=== PATIENT | female | born 1980 | race African-American/Black ===

== ENCOUNTER 2022-07-05 09:13 | Emergency (ER) | payer MEDICAID, SELFPAY ==
[2022-07-05] VITALS (7 sets, daily range): BP systolic 112–145; BP diastolic 65–90; PULSE 66–147; RESP 14–27; TEMP 35.7; O2SAT 95–100; BMI 48.0
--- NOTE | 2022-07-05 09:18 | NURSING ---
NO OLD EKGS
--- NOTE | 2022-07-05 09:59 | CT_ITS ---
STUDY: CTA CHEST REASON FOR EXAM: Female, 41 years old. chest and abdomen pain RADIATION DOSAGE (If Supplied By Facility): CTDIvol = ( 19.17 ) mGy, DLP = ( 3553.16 ) mGycm TECHNIQUE: The examination was performed with the intravenous administration of IV 100mL Isovue-370. Post-processing of the angiographic images was performed, with multiplanar reformation and 3D reconstruction. Individualized dose optimization techniques were used for this CT. COMPARISON: None. FINDINGS: Normal enhancement of the main pulmonary artery and right and left pulmonary arteries. Normal enhancement of the bilateral peripheral pulmonary arteries. There is no demonstrated pulmonary embolism. Normal thoracic aorta and visualized great vessels. There is no demonstrated aortic dissection. Normal heart and pericardium. Normal mediastinum. Normal hilar regions. Normal visualized trachea and bronchi. The lungs are well expanded. Mild bibasilar dependent atelectasis. Normal pleura. Normal chest wall structures. Mild degenerative changes lower thoracic spine. Fatty infiltration imaged portion of liver. CT/CTA Chest W/WO Contrast IMPRESSION: Normal CTA chest examination, without a demonstrated pulmonary embolism or arterial dissection. Mild bibasilar dependent atelectasis. Mild degenerative changes lower thoracic spine. Fatty infiltration imaged portion of the liver. Electronically Signed: Adarsh Rush MD, ALFONZO at 11:46 EDT ,
--- NOTE | 2022-07-05 10:00 | CT_ITS ---
STUDY: CT ABDOMEN AND PELVIS WITH CONTRAST REASON FOR EXAM: Female, 41 years old. abdominal pain RADIATION DOSAGE (If Supplied By Facility): CTDIvol = ( 19.17 ) mGy, DLP = ( 3553.16 ) mGycm TECHNIQUE: Transaxial images were obtained from the dome of the diaphragm to the symphysis pubis without oral contrast. IV 100mL Isovue-370 was administered. Sagittal and coronal images were reconstructed. Individualized dose optimization techniques were used for this CT. COMPARISON: None. FINDINGS: The visualized lung bases are unremarkable. The visualized portions of the heart are within normal limits. Mild fatty infiltration. Normal gallbladder and extrahepatic biliary system. Normal spleen. Normal variant accessory spleen. Normal pancreas. Normal bilateral adrenal glands. Normal right kidney. Normal left kidney. Normal visualized stomach. Normal small intestine. Moderate stool in the ascending colon and rectum consistent with fecal stasis. Remainder of colon normal. The appendix is visualized and appears normal. Normal abdominal aorta. Normal inferior vena cava. Normal retroperitoneum. Normal urinary bladder. Normal abdominal wall. Normal osseous structures. CT/Abdomen/Pelvis W IV Cont ONLY IMPRESSION: Normal variant accessory spleen. Fecal stasis ascending colon and rectum. Fatty liver. Electronically Signed: Adarsh Rush MD, ALFONZO at 11:39 EDT ,
--- NOTE | 2022-07-05 10:00 | EKG12_ITS ---
Test Reason : CP Blood Pressure : / mmHG Vent. Rate : 146 BPM Atrial Rate : 146 BPM P-R Int : 160 ms QRS Dur : 084 ms QT Int : 314 ms P-R-T Axes : 037 012 118 degrees QTc Int : 489 ms Sinus tachycardia Minimal voltage criteria for LVH, may be normal variant ( R in aVL ) ST & T wave abnormality, consider inferolateral ischemia Abnormal ECG Confirmed by HÉCTOR ARAUJO, LEYLA ([id number]), medical transcription editor SUJEY KERANS ([id number]) on 07/07/2022 2:06:35 P M Referred By: BRADLEY Confirmed By:CARMEL ANAYA MD
--- NOTE | 2022-07-05 10:01 | EDS_ITS ---
HPI History of Present Illness Chief Complaint: Chest Pain Detail of Chief Complaint: Chest and abdomen pain that started at approximately midnight Informant: patient Narrative Narrative: Patient presents the emergency department with complaint of chest and abdomen pain. Patient was having preadmission testing as she is scheduled to have a hysteroscopy. Patient was noted to be tachycardic and complaining of chest pain and abdominal pain and referred to the emergency department. Patient states symptoms came on suddenly last evening. Patient describes a pressure in her chest but sharp stabbing pains in her abdomen. Patient has history of ovarian torsion and states pain reminds her of that. Pain however is kind of diffuse in the abdomen. She has had nausea but no vomiting. She denies fever or recent illness otherwise. She does complain of urinary frequency. She has no heart history. She does have history of diabetes and hypertension. Prior similar symptoms: No PFSH PFS Medical History (Updated 07/05/22 @ 14:[address] Lamont Mancuso, DO) delivery delivered Ovarian torsion Home Medications amlodipine 10 mg tablet 25 mg PO DAILY 07/05/22 [History Last Taken Unknown] cyclobenzaprine 10 mg tablet 10 mg PO TID 07/05/22 [History Last Taken Unknown] hydrocodone-acetaminophen 5-325mg 5mg-325mg 1 tab PO Q4H PRN PRN Pain 2 days #10 TABLETS 07/05/22 [Rx Last Taken Unknown] hydroxyzine HCl 25 mg tablet 25 mg PO TID PRN Anxiety 07/05/22 [History Last Taken Unknown] insulin glargine 100 unit/mL subcutaneous cartridge 0 unit subcut TID 07/05/22 [History Last Taken Unknown] insulin lispro 100 unit/mL subcutaneous pen 0 unit subcut TID 07/05/22 [History Last Taken Unknown] liraglutide 0.6 mg/0.1 mL (18 mg/3 mL) subcutaneous pen injector (Victoza 2-Delonte) 1.2 mg subcut DAILY 07/05/22 [History Last Taken Unknown] pregabalin 25 mg capsule (Lyrica) 25 mg PO TID 07/05/22 [History Last Taken Unknown] sulfamethoxazole 800 mg-trimethoprim 160 mg tablet 1 tab PO BID #14 TABLETS 07/05/22 [Rx Last Taken Unknown] venlafaxine 75 mg tablet 187.5 mg PO DAILY 07/05/22 [History Last Taken Unknown] Allergy/AdvReac Type Severity Reaction Status Date / Time amoxicillin Allergy Hives Verified 07/05/22 09:15 ciprofloxacin [From Cipro] Allergy Hives Verified 07/05/22 09:15 Social History Smoking Status: Never smoker ROS ROS ED Review of Systems ROS Unobtainable: other Constitutional Constitutional ED: Reports lethargy; Denies chills, fever(s), sweats or weight loss Eyes Eyes: Denies blurry vision, change in vision or diplopia ENT ENT ED: Denies rhinorrhea or sore throat Cardiovascular Cardiovascular: Reports chest pain and racing heartbeat; Denies orthopnea Respiratory/Chest Respiratory/Chest: Denies cough, dyspnea, dyspnea on exertion, orthopnea or sputum Gastrointestinal Gastrointestinal: Reports abdominal pain and nausea; Denies diarrhea or vomiting Genitourinary Genitourinary ED: Reports other Details: Patient with urinary frequency ; Denies dysuria, hematuria or urinary frequency Musculoskeletal Musculoskeletal: Denies arthralgias, back pain, myalgias or neck pain Integumentary Denies abscess, Abrasions or rash Neurologic Neurologic: Denies headache(s) or weakness Psychiatric Psychiatric: Denies anxiety, depression or suicidal thoughts Endocrine Endocrinology: Denies polydipsia, polyphagia or polyuria Hematologic/Lymphatic Hematologic/Lymphatic: Denies easy bleeding, easy bruising or lymphadenopathy Allergic/Immunologic Allergic/Immunologic ED: Denies mouth swelling, tongue swelling or urticaria EXAM Physical Exam Const Vital Signs: 07/05/22 09:15 07/05/22 09:24 07/05/22 09:24 Temperature 96.2 F L Temperature Source Temporal Pulse Rate 141 H 147 H Respiratory Rate 20 H 27 H Respiratory Effort Short of Breath Blood Pressure 115/90 H Blood Pressure Mean 98 Pulse Ox 98 98 Oxygen Delivery Method Room Air Room Air 07/05/22 10:25 07/05/22 11:00 07/05/22 12:00 Temperature Temperature Source Pulse Rate 127 H 66 66 Respiratory Rate 14 18 18 Respiratory Effort Blood Pressure 124/74 H 145/65 H 142/78 H Blood Pressure Mean 90 91 99 Pulse Ox 98 98 100 Oxygen Delivery Method Room Air Room Air Room Air 07/05/22 13:00 07/05/22 13:23 Temperature Temperature Source Pulse Rate 78 105 H Respiratory Rate 14 16 Respiratory Effort Blood Pressure 138/78 H 112/71 Blood Pressure Mean 98 84 Pulse Ox 98 95 Oxygen Delivery Method Room Air Room Air Positive well nourished and well developed General Appearance ED: well developed and NAD HEENT Reports TM's clear and moist mucous membranes normocephalic and atraumatic; Negative for trauma or tenderness Tympanic Membrane ED: Yes TM's clear Eyes PERRL and EOMs intact bilaterally General Eye ED: Negative for pale conjunctiva or scleral icterus Neck no lymphadenopathy, supple and no JVD General: Negative for tenderness Chest Wall inspection of chest normal and palpation of chest normal Chest: Negative for tenderness Resp normal respiratory effort and clear to auscultation bilaterally Effort and Inspection: Negative for respiratory distress or pain with movement Auscultation: Negative for rhonchi, wheezes or diminished lung sounds Cardio regular rhythm, S1 normal heart sound, S2 normal heart sound and no murmurs Rate: tachycardic Peripheral Pulses: pulses 2+ throughout GI normal to inspection, nondistended, normoactive bowel sounds, soft to palpation, non-distended and no masses GI Narrative: Diffuse abdominal pain. Patient with tenderness over the upper and lower abdomen diffusely. There is guarding. There is no rebound or rigidity. Back/Spine no CVA tenderness and no thoracic nor lumbar tenderness Extremity normal to inspection General Extremety ED: Negative for edema General Extremity: Negative for edema Neuro oriented x3, CN's II-XII intact bilaterally, no sensory deficits noted and gait normal Sensorium / Orientation: awake, alert, oriented to person, oriented to place and oriented to time Motor Exam: strength 5/5 throughout and strength abnormal Psych mental status grossly normal Skin no rashes or lesions noted and no wounds MDM MDM MDM Narrative Medical decision making narrative: IV line established on arrival. Patient was medicated with morphine and Zofran. She initially had good pain relief with that but then the pain came back and was given another 4 mg of morphine. Patient had more pain and was given Dilaudid 1 mg IV. Lab work-up showed an elevated white count 20,000. Chemistries were unremarkable. Glucose was elevated 431. Lactate was slightly elevated 2.1. Lipase was normal. CT chest was obtained which was negative for PE or dissection. Patient also had a CT scan of the abdomen pelvis that was unremarkable. Urinalysis was positive for nitrites as well as white cells and bacteria. I did I did send off a culture. Patient will be started on Bactrim. Patient was offered admission for this intractable abdominal pain as the etiology of it is unclear. I also performed a pelvic ultrasound and there was no evidence of torsion. Patient states that she lives in [place] and does not want to stay here and wants to go back home. I will write her prescription for [place] for pain and Bactrim for UTI. Patient advised to follow-up with her primary care physician or to return to the ER if worsening pain, fever, vomiting, or condition should worsen anyway. Patient's tachycardia did improve at rest into the low 100s. Patient states that is where she normally is ever since she had COVID. Lab Data Attestation: I reviewed the patient's lab results. Labs: Laboratory Results - last 24 hr 07/05/22 07/05/22 07/05/22 09:30 09:30 10:20 WBC 20.0 H RBC 4.87 Hgb 10.6 L Hct 35.3 L MCV 72.5 L MCH 21.8 L MCHC 30.0 L RDW Std Deviation 45.0 H RDW Coeff of Srinivas 17.6 H Plt Count 361 MPV 10.8 Immature Gran % (Auto) 0.500 Neut % (Auto) 84.0 H Lymph % (Auto) 11.5 L [place] % (Auto) 3.5 Eos % (Auto) 0.2 Baso % (Auto) 0.3 Absolute Neuts (auto) 16.8 H Absolute Lymphs (auto) 2.30 Nucleated RBC % 0 Sodium 132 L Potassium 4.1 Chloride 101 Carbon Dioxide 25.0 Anion Gap 6 BUN 11 Creatinine 1.03 H Estim Creat Clear Calc 78.51 Est GFR (MDRD) Af Amer 76 Est GFR (MDRD) Non-Af 63 BUN/Creatinine Ratio 10.7 Glucose 431 H Lactic Acid 2.1 H* Calcium 9.2 Total Bilirubin 0.30 AST 23 ALT 21 Alkaline Phosphatase 155 H Troponin I High Sens 5 Total Protein 8.2 Albumin 3.2 Globulin 5.0 H Albumin/Globulin Ratio 0.6 L Lipase 70 L Urine Color Urine Clarity Urine pH Ur Specific [place] Urine Protein Urine Glucose (UA) Urine Ketones Urine Occult Blood Urine Nitrite Urine Bilirubin Urine Urobilinogen Ur Leukocyte Esterase Urine RBC Urine WBC Ur Squamous Epith Cells Urine Bacteria Urine Mucus 07/05/22 11:11 WBC RBC Hgb Hct MCV MCH MCHC RDW Std Deviation RDW Coeff of Srinivas Plt Count MPV Immature Gran % (Auto) Neut % (Auto) Lymph % (Auto) [place] % (Auto) Eos % (Auto) Baso % (Auto) Absolute Neuts (auto) Absolute Lymphs (auto) Nucleated RBC % Sodium Potassium Chloride Carbon Dioxide Anion Gap BUN Creatinine Estim Creat Clear Calc Est GFR (MDRD) Af Amer Est GFR (MDRD) Non-Af BUN/Creatinine Ratio Glucose Lactic Acid Calcium Total Bilirubin AST ALT Alkaline Phosphatase Troponin I High Sens Total Protein Albumin Globulin Albumin/Globulin Ratio Lipase Urine Color Yellow Urine Clarity Sl. Cloudy Urine pH 6.5 Ur Specific [place] 1.010 Urine Protein 30 H Urine Glucose (UA) 1000 H Urine Ketones 5 H Urine Occult Blood 250 H Urine Nitrite Positive H Urine Bilirubin Negative Urine Urobilinogen Normal Ur Leukocyte Esterase 100 H Urine RBC 25-50 SEEN Urine WBC 10-25 SEEN Ur Squamous Epith Cells 0-5 SEEN Urine Bacteria 2+ Urine Mucus 0 SEEN Radiography Diagnostic Testing: Clinical Impression(s) from Imaging Studies Chest CTA 07/05/22 09:59 IMPRESSION: Normal CTA chest examination, without a demonstrated pulmonary embolism or arterial dissection. Mild bibasilar dependent atelectasis. Mild degenerative changes lower thoracic spine. Fatty infiltration imaged portion of the liver. Electronically Signed: Adarsh Rush MD, JD at 11:46 EDT , Abdomen/Pelvis CT 07/05/22 10:00 IMPRESSION: Normal variant accessory spleen. Fecal stasis ascending colon and rectum. Fatty liver. Electronically Signed: Adarsh Rush MD, JD at 11:39 EDT , Transvaginal US 07/05/22 11:59 IMPRESSION: Bilateral ovarian cysts. No evidence of torsion. Electronically Signed: Guy Murphy MD at 13:34 EDT , EKG Initial EKG: Attestation: I personally reviewed and interpreted this EKG as follows: Comments: Sinus tachycardia with a ventricular rate of [address] changes Discharge Plan Triage Chief Complaint: Chest Pain ED Provider: Lamont Mancuso Dx/Rx/DC Orders Clinical Impression: Abdominal pain, Chest pain, UTI (urinary tract infection) Instructions: ED Abdominal Pain Unkn Cause Fem, ED Chest Pain, Uncertain Cause, ED Cystitis Female Adult Prescriptions: New hydrocodone-acetaminophen [hydrocodone-acetaminophen] 5-325 mg tablet 1 tab PO Q4H PRN PRN (Reason: Pain) 2 Days Qty: 10 0RF sulfamethoxazole-trimethoprim [sulfamethoxazole-trimethoprim] 800-160 mg tablet 1 tab PO BID Qty: 14 0RF No Action cyclobenzaprine 10 mg Tablet 10 mg PO TID venlafaxine [Effexor] 75 mg Tablet 187.5 mg PO DAILY amlodipine 10 mg Tablet 25 mg PO DAILY hydroxyzine HCl 25 mg Tablet 25 mg PO TID PRN (Reason: Anxiety) insulin lispro [Humalog Pen] 100 unit/mL Insulin Pen 0 unit SUBCUT TID Lantus U-100 Insulin 100 unit/mL Cartridge 0 unit SUBCUT TID pregabalin [Lyrica] 25 mg Capsule 25 mg PO TID Victoza 2-Delonte 0.6 mg/0.1 mL (18 mg/3 mL) Pen Injector 1.2 mg SUBCUT DAILY Primary Care Provider: ALFREDO ESPINOZA Referrals: ALFREDO ESPINOZA [Other] Activity Restrictions/Additional Instructions: Follow-up with your family doctor within the next 3 to 5 days. Disposition Disposition: Home, Self Care
[2022-07-05] MEDS: Ondansetron 4 MG/2 ML Vial IV (10:22)
[2022-07-05] MEDS: 0.9% Normal Saline 1,000 ML 150 ML IV (10:22)
[2022-07-05] MEDS: Morphine 4 MG/ML Syringe IV ×2 (10:22→12:07)
[2022-07-05 10:24] LABS: Absolute Neutrophil Count 16.8 X10^3/uL (2.0-7.7); Basophil# 0.06 X10^3/uL; Basophil% 0.3 % (0-1); Eosinophil# 0.04 X10^3/uL; Eosinophils% 0.2 % (0-5); Hematocrit 35.3 % (37-47); Hemoglobin 10.6 g/dL (12.0-15.0); Lymphocyte % 11.5 % (19-41); Mean Corpuscular Hgb 21.8 pg (27.0-32.0); Mean Corpuscular Volume 72.5 fL (81-99); Mean Platelet Vol. 10.8 fl (6.2-12.0); Monocyte% 3.5 % (0-10); NRBC Flagged by Analyzer 0 % (0-5); Neutrophil # 16.78 X10^3/uL (2.7-7.7); Platelet Count 361 K/mm3 (150-450); RBC Distribution Width CV 17.6 % (11.6-14.6); Red Blood Count 4.87 M/mm3 (4.2-5.4)
[2022-07-05 10:41] LABS: ALB/GLOB Ratio 0.6 RATIO (0.9-2.4); AST(SGOT) 23 U/L (15-37); Alanine Aminotransfer ALT/SGPT 21 U/L (13-56); Albumin, Serum 3.2 g/dL (3.2-5.0); Alkaline Phosphatase 155 U/L (45-117); Anion Gap 6 (5-15); BUN 11 mg/dL (7-18); BUN/Creat Ratio 10.7 RATIO (10-20); Calcium,Total 9.2 mg/dL (8.5-10.1); Chloride 101 mmol/L (98-107); Creatinine, Serum 1.03 mg/dL (0.55-1.02); EST Glomerular Filtration Rate 63 mL/min (>60); Est Glom Filt Rate - Afr Amer 76 mL/min (>60); Estimated Creatinine Clearance 78.51 ml/min; Glucose 431 mg/dL (74-106); Lipase 70 U/L (73-393); Potassium 4.1 mmol/L (3.5-5.1); Protein, Total 8.2 g/dL (6.4-8.2); Sodium Level 132 mmol/L (136-145); Troponin-I HS 5 pg/mL (3.0-54.0)
[2022-07-05 10:53] LABS: Lactic Acid 2.1 mmol/L (0.4-1.9)
[2022-07-05 11:49] LABS: Mucous, Urine 0 SEEN /hpf (<or=2+)
[2022-07-05 11:52] LABS: Color, Urine Yellow (Yellow); Glucose, Dipstick 1000 mg/dl (Normal); Ketone-Dipstick 5 mg/dl (Negative); Leukocyte Esterase-Dipstick 100 /ul (Negative); Nitrite-Dipstick Positive (Negative); Occult Blood-Urine 250 /ul (Negative); Protein-Dipstick 30 mg/dl (Negative); Urine Bilirubin Dipstick Negative (Negative); Urine Clarity Sl. Cloudy (Clear); Urine Urobilinogen Normal (Normal); Urine pH 6.5 (5.0 - 8.0)
[2022-07-05 11:58] LABS: Bacteria 2+ /hpf (None Seen); Red Blood Cells-Urine 25-50 SEEN /hpf (0-5); Squamous Epithelial Cells - UA 0-5 SEEN /hpf (5-10); White Blood Cells 10-25 SEEN /hpf (0-5)
--- NOTE | 2022-07-05 11:59 | US_ITS ---
STUDY: ULTRASOUND OF THE FEMALE PELVIS - COMPLETE REASON FOR EXAM: Female, 41 years old. Abdominal, CHEST AND PELVIC PAIN -- HX OF OV TORSION 2020 -- OBESITY LMP: 06/28/2022. TECHNIQUE: Transabdominal and Transvaginal TECHNICAL QUALITY: Adequate. COMPARISON: None. FINDINGS: The uterus is anteverted and is in a midline position. The uterus measures 13.7 cm x 2.8 cm x 5.3 cm. There is a Nabothian cyst of the cervix. The endometrium measures 11 mm in thickness, and is hyperechoic. There is no demonstrated endometrial mass. There is no demonstrated myometrial mass. I.U.D. - The patient does not have an I.U.D. The right ovary is visualized. The right ovary is enlarged and measures 5.6 x 4.7 cm x 3.8 cm. There is a 3 cm x 3.5 cm x 2.7 cm cyst. There is no visualized right adnexal mass or complex lesion. There is normal arterial and normal venous vascularity. The left ovary is visualized. The left ovary is enlarged and measures 5.8 cm x 4.4 cm x 2.8 cm. There is a 3.5 cm x 3.2 cm x 2.1 cm cyst. There is no visualized left adnexal mass or complex lesion. There is normal arterial and normal venous vascularity. There is no fluid in the cul-de-sac. US/Transvaginal Non- IMPRESSION: Bilateral ovarian cysts. No evidence of torsion. Electronically Signed: Guy Murphy MD at 13:34 EDT ,
[2022-07-05] MEDS: HYDROmorphone 1 MG/ML Syringe IV (13:18)
[2022-07-05 14:24] LABS: Reflex Lactate? Y
[2022-07-05] MEDS: Smz/Tmp Ds Tablet 1 TABLET PO (14:24)
== END 2022-07-05 14:25 | disposition home or self-care (01) ==
PROVIDERS: Emergency Provider Emergency Medicine; Visit Provider Emergency Medicine
DX: R10.84 Generalized abdominal pain (principal); E11.65 Type 2 diabetes mellitus with hyperglycemia; Z79.4 Long term (current) use of insulin; R07.9 Chest pain, unspecified; N39.0 Urinary tract infection, site not specified; I10 Essential (primary) hypertension; R11.0 Nausea; R00.0 Tachycardia, unspecified; Z79.899 Other long term (current) drug therapy
CPT/HCPCS: 71275; 74177; 76830; 80053; 81001; 83605; 83690; 84484; 85025; 87086; 87088; 93005; 96361; 96374; 96375; 96376; 99285; J7030; Q9967; A4216; J2405